=== PATIENT | male | born 1965 | race African-American/Black ===

== ENCOUNTER 2025-02-25 11:03 | Emergency (ER) | payer BC, SELFPAY ==
[2025-02-25 11:06] VITALS: BP 151/90
[2025-02-25 11:20] VITALS: BP 138/91
--- NOTE | 2025-02-25 11:25 | ED.GENMED ---
History of Present Illness
General
Chief Complaint: Allergic Reaction
Source: patient
Exam Limitations: none
Time Seen by Provider: 02/25/25 11:15
Nursing documentation reviewed up to this point in time: agreed with
History of Present Illness
History of Present Illness:
59-year-old male with type 2 diabetes, allergy to bee stings states he was removing some brush from his yard when he was attacked by yellow jackets that swarmed both of his ankles and gave him multiple stings, got 1 sting on the inner left thigh and
one sting on the right side of his head. This occurred half hour ago. He says his throat feels a little tight, he is having no trouble speaking or swallowing. He denies chest pain, states he felt a little short of breath but not now. He has an
EpiPen at home but could not bring himself to use it.
He states he knows there is a difference in reactions between yellowjacket, wasp and bee stings. Since he had no life-threatening symptoms he did not administer the EpiPen
Past History
Past History
ED Past Medical History: NIDDM
ED Past Surgical History: Orthopedic and Other (hernia)
Review of Systems
Review of Systems
Allergies reviewed?: Yes
All Other Systems: ROS reviewed and negative except as documented in HPI and ROS
EENT: Denies sore throat or mouth swelling
Respiratory: Denies trouble breathing
Cardiac: Denies chest pain
ABD/GI: Denies abdominal pain, nausea or vomiting
Skin: Reports other (stings both ankles)
Neurological: Reports no symptoms
Phy Exam
Physical Exam
Physical Exam:
GENERAL: No acute distress. A&Ox3.
CONSTITUTIONAL: Afebrile.
EYES: clear, conjunctivae normal
ENMT: moist mucus membranes, Pharynx nl
RESPIRATORY: Regular respirations, nonlabored, lungs clear.
CARDIOVASCULAR: Regular rate and rhythm, no murmurs, no rubs.
GI: Soft, nontender, normal BS
MUSCULOSKELETAL: Moves with ease. Well perfused.
SKIN: Warm, dry, normal. Multiple stings about the ankles, mild swelling and redness. No swelling at site of thigh and scalp sting
PSYCH: Normal mood and affect. Well kept, interactive and appropriate
NEUROLOGIC: Awake, alert and oriented. No focal neurological deficits
Course
Orders/Labs/Results
Orders:
Orders
02/25/25 11:24
Dexamethasone Sod Phosphate [Decadron] 10 mg IV NOW STA
Diphenhydramine [Benadryl] 50 mg IV NOW STA
Ketorolac [Toradol] 15 mg IV NOW STA
02/25/25 11:40
Ondansetron Injectable [Zofran] 4 mg IV NOW STA
Vital Signs
Initial and Last Documented VS:
Initial Vital Signs
Temp Pulse Resp BP Pulse Ox
98.6 F 95 20 151/90 99
02/25/25 11:06 02/25/25 11:06 02/25/25 11:06 02/25/25 11:06 02/25/25 11:06
Last Documented Vital Signs
Temp Pulse Resp BP Pulse Ox
98.6 F 93 18 134/96 95
02/25/25 11:06 02/25/25 12:30 02/25/25 12:30 02/25/25 12:00 02/25/25 12:30
MDM/Problems Addressed
Differential Diagnosis Includes:
Local reaction to bee sting
Allergic reaction to bee sting
Anaphylaxis
MDM/Problems Addressed:
59-year-old male with type 2 diabetes, allergy to bee stings states he was removing some brush from his yard when he was attacked by yellow jackets that swarmed both of his ankles and gave him multiple stings, got 1 sting on the inner left thigh and
one sting on the right side of his head. This occurred half hour ago. He says his throat feels a little tight, he is having no trouble speaking or swallowing. He denies chest pain, states he felt a little short of breath but not now. He has an
EpiPen at home but could not bring himself to use it.
He states he knows there is a difference in reactions between yellowjacket, wasp and bee stings. Since he had no life-threatening symptoms he did not administer the EpiPen
NAD.
Feels very mild swelling in his throat.
Mild redness and swelling both ankles with multiple stings
No significant systemic symptoms at this time
Pt knows to use Epi pen if stung and develops throat/mouth swelling, diff breathing, CP, feeling faint, vomiting, any symptoms other than pain at the site of sting.
11:40 a.m.
Feeling nauseous, Zofran ordered
12:30 p.m.
Feeling 'fine.'
No sign of significant allergic reaction.
Stable for discharge
*Pulse Oximetry
SaO2: 99
Oxygen Mode of Delivery: Room air
Patient hypoxic: no
*Critical Care Note
Total Time (30-74mins, 75-104mins- exclusive of procedures): Not Applicable
ED Attending Note
-
Portions of this chart may have been created with voice recognition software.� Occasional wrong word or��sound alike� substitutions may have occurred due to the inherent limitations of voice recognition software.
Discharge Plan
Departure
Patient Disposition: Home (Routine Discharge)
Date of Disposition: 02/25/25
Time of Disposition: 12:34
Patient with high blood pressure during this ER visit?: No
Condition: Good
Discharge Problem:
Local reaction to hymenoptera sting
Instructions: Insect Bites and Stings (DC)
Referrals:
Kenneth Harrison MD [Family Provider, Internal Medicine] - As needed
Activity Restrictions/Additional Instructions:
As we discussed, I see no sign of significant allergic reaction
For the local swelling and pain: Ibuprofen 600 mg (with food) every 6 hours as needed
Cool compresses to the areas.
You were given Benadryl 50 mg, Decadron (a steroid), and Toradol for pain through your IV.
Interventions
Interventions:
*Risk Screen - Suicide Last Done: 02/25/25 12:35
*General Assessment Last Done: 02/25/25 12:45
*Neglect/Abuse Screening Last Done: 02/25/25 12:35
*ED- Fall Risk Assessment Last Done: 02/25/25 12:44
*ED COVID-19 Vaccine History Last Done: 02/25/25 12:35
*Nursing Disposition Last Done: 02/25/25 12:44
ED-Skin Assessment Last Done: 02/25/25 12:35
ED- Pulmonary Assessment Last Done: 02/25/25 12:35
ED- Cardiac Assessment Last Done: 02/25/25 12:35
Discharge Date and Time
Discharge Date/Time: 02/25/25 12:45
Print Language: [id number]
[2025-02-25] MEDS: DECADRON 10 MG IV (11:28)
[2025-02-25] MEDS: TORADOL 15 MG IV (11:29)
[2025-02-25] MEDS: BENADRYL 50 MG IV (11:30)
[2025-02-25] MEDS: ZOFRAN 4 MG IV (11:40)
[2025-02-25 12:00] VITALS: BP 134/96
== END 2025-02-25 12:45 | disposition home or self-care (01) ==
LOC: EMR 11:03
PROVIDERS: EMERGENCY PHYSICIAN Emergency Medicine; FAMILY PHYSICIAN Internal Medicine
DX: T63.441A Toxic effect of venom of bees, accidental (unintentional), initial encounter (principal); E11.9 Type 2 diabetes mellitus without complications
CPT/HCPCS: 99282; 96374; 96375